=== PATIENT | female | born 1955 | race Caucasian/White ===

== ENCOUNTER → 2017-03-27 | Outpatient (CLI) | payer BC ==
[~2017-03-27] MED LIST: CHANTIX1 MG PO; CYCLOBENZAPRINE10 MG PO; HYDROCODON-ACE1 EAC7 PO; IBUPROFEN 800800 M1 PO; MOBIC7.5 M1 PO
== END ==
LOC: M.RAD 16:29
DX: M25.571 Pain in right ankle and joints of right foot (principal)